=== PATIENT | male | born 1955 | race Caucasian/White ===

== ENCOUNTER → 2021-03-25 14:58 | Outpatient (BNVA) | payer OTHER, SELFPAY | PROVIDERS: Family Provider Nurse Practitioner; PCP Nurse Practitioner; Visit Provider Specialist | DX: G62.89 Other specified polyneuropathies (principal) | CPT/HCPCS: 95909 ==

== ENCOUNTER → 2021-06-10 13:48 | Outpatient (BNVA) | payer OTHER, SELFPAY | PROVIDERS: Family Provider Nurse Practitioner; PCP Nurse Practitioner; Visit Provider Specialist | DX: G62.9 Polyneuropathy, unspecified (principal); G43.711 Chronic migraine without aura, intractable, with status migrainosus; R20.0 Anesthesia of skin; R20.2 Paresthesia of skin; M54.5 Low back pain | CPT/HCPCS: 99204 ==

== ENCOUNTER 2021-06-14 10:11 | Outpatient (CLI) | payer OTHER, SELFPAY ==
[2021-06-14 11:15] LABS: Estmated Average Glucose 105; Hemoglobin A1C 5.3 % (4.0-6.0)
[2021-06-14 11:28] LABS: Folate Level 9.5 ng/mL (4.5-32.2)
[2021-06-14 11:43] LABS: C Reactive Protein 1.7 mg/L (0.0-4.9); Thyroid Stimulating Hormone 1.03 uIU/mL (0.27-4.20); Vitamin B12 630 pg/mL (232-1245)
[2021-06-19 13:30] LABS: Erythrocyte Sedimentation Rate 2 mm/hr (0-10)
[2021-06-19 22:46] LABS: Methylmalonic Acid 240 nmol/L (87-318)
== END 2021-06-14 10:12 | disposition home or self-care (01) ==
PROVIDERS: PCP Nurse Practitioner; Visit Provider Specialist
DX: R20.0 Anesthesia of skin (principal); R20.2 Paresthesia of skin; G62.9 Polyneuropathy, unspecified; M54.50 Low back pain, unspecified
CPT/HCPCS: 82607; 82746; 83036; 83520; 83921; 84260; 84443; 85651; 86140; 86431

== ENCOUNTER 2021-06-25 15:21 | Outpatient (CLI) | payer OTHER, SELFPAY ==
--- NOTE | 2021-06-25 15:26 | MR_ITS ---
WS: [id number] MRI LUMBAR SPINE NONCONTRAST TECHNIQUE: Sagittal T1, T2 and STIR imaging. Axial T1 and T2 imaging. CLINICAL INFORMATION: LOW BACK PAIN COMPARISON: None. FINDINGS: Lumbar curve. No acute compression. Incidental hemangioma L5 vertebral body.Small disc protrusions th e lower thoracic spine at T10-T11 and T11-T12 worse at T11-T12. L1-L2: Mild annular bulging with a shallow central protrusion. Mild central canal stenosis. Impingeme nt subarticular recess bilaterally. Foramen are patent. L2-L3: Mild disc bulging with slight impingement on the left subarticular recess and traversing left L3 nerve root. Mild facet arthropathy. Foramen are patent. L3-L4: Mild annular bulging with mild central canal stenosis. Impingement on the left subarticular re cess and traversing left L4 nerve root. Left foraminal protrusion with mild to moderate left foramina l narrowing. Slight impingement on the exiting left L3 nerve root. L4-L5: Annular bulging with a shallow central protrusion and annular tear. Moderate central canal kim nosis. Impingement traversing L5 nerve roots bilaterally. Mild facet arthropathy. Mild left foraminal narrowing. L5-S1: Slight retrolisthesis L5 on S1. Left pericentral protrusion impinges the traversing left S1 ne rve root in the subarticular recess.Correlation left S1 nerve root symptoms. Mild central canal steno sis. Foramen are patent. Mild facet arthropathy. 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 Visualized pelvic bony structures: Normal. Paravertebral soft tissues: Normal. MR/MR lumbar spine wo con* [id number] IMPRESSION: 1. Mild lumbar curve. No acute compression. 2. Left pericentral protrusion L5-S1 impinges the traversing left S1 nerve juan pablo t.Correlation left S1 nerve root symptoms. 3. Mild central canal stenosis L1-2, L2-3, L3-4. 4. Moderate central canal stenosis L4-5 with impingement on the traversing L5 nerve roots bilaterally. Shallow central protrusion. 5. Left pericentral protrusion L3-4 impinges the left subarticular recess and traversing left L4 nerve root. Recommend correlation left L4 nerve root symptom s. 6. Left foraminal protrusion L3-4 impinges the exiting left L3 nerve root with mild to moderate left foraminal narrowing. 7. Mild left L4-5 foraminal narrowing.
== END 2021-06-25 15:22 | disposition home or self-care (01) ==
PROVIDERS: PCP Nurse Practitioner; Visit Provider Specialist
DX: M54.50 Low back pain, unspecified (principal)
CPT/HCPCS: 72148

== ENCOUNTER → 2021-07-24 09:20 | Outpatient (BNVA) | payer OTHER, SELFPAY | PROVIDERS: PCP Nurse Practitioner; Referring Provider Nurse Practitioner; Visit Provider Anesthesiology Pain Medicine | DX: G89.29 Other chronic pain (principal); M51.16 Intervertebral disc disorders with radiculopathy, lumbar region; M47.816 Spondylosis without myelopathy or radiculopathy, lumbar region; G62.9 Polyneuropathy, unspecified | CPT/HCPCS: 99205 ==

== ENCOUNTER → 2021-08-14 14:05 | Outpatient (BNVA) | payer OTHER, SELFPAY | PROVIDERS: PCP Nurse Practitioner; Visit Provider Anesthesiology Pain Medicine | DX: G89.29 Other chronic pain (principal); M54.16 Radiculopathy, lumbar region | CPT/HCPCS: 64483; 64484; J1100; J3490 ==

== ENCOUNTER → 2021-08-19 09:27 | Outpatient (BNVA) | payer OTHER, SELFPAY | PROVIDERS: PCP Nurse Practitioner; Visit Provider Specialist | DX: M51.16 Intervertebral disc disorders with radiculopathy, lumbar region (principal) | CPT/HCPCS: 99213; 99214 ==